=== PATIENT | male | born 1955 | race Caucasian/White ===

== ENCOUNTER 2022-10-31 09:01 | Day surgery (SDC) | payer MEDICARE, OTHER, SELFPAY ==
[2022-10-31] MEDS: LACTATED RINGERS 1000 ML 1,000 ML 100 ML IV (09:20)
[2022-10-31 09:29] VITALS: BMI 24.7
[2022-10-31 09:49] VITALS: BP 143/85; PULSE 79; RESP 18; TEMP 36.4; O2SAT 97
[2022-10-31] MEDS: SODIUM CHLORIDE 0.9 % (FLUSH) 10 ML SYRINGE IVF (10:51)
[2022-10-31] MEDS: BUPIVACAINE 0.5% 30 ML INJECTION (11:33)
[2022-10-31] MEDS: CEFAZOLIN 2 GM INJ IVP (11:34)
--- NOTE | 2022-10-31 11:54 | SUR.OPER ---
Surgeon denied request tos end specimen.
--- NOTE | 2022-10-31 12:37 | W.ANESCHARGE ---
Anesthesia Charges Start Date/Time Anesthesia Start Date: 10/31/22 Anesthesia Start Time: 11:23 Stop Date/Time Anesthesia Stop Date: 10/31/22 Anesthesia Stop Time: 12:38
[2022-10-31 12:38] VITALS: BP 136/83; PULSE 59; RESP 16; TEMP 36.4; O2SAT 96
--- NOTE | 2022-10-31 12:39 | W.ANESCHARGE ---
Anesthesia Charges Start Date/Time Anesthesia Start Date: 10/31/22 Anesthesia Start Time: 11:23 Stop Date/Time Anesthesia Stop Date: 10/31/22 Anesthesia Stop Time: 12:38
[2022-10-31 12:45] VITALS: BP 138/88; PULSE 60; RESP 16; O2SAT 94
--- NOTE | 2022-10-31 12:54 | PM.PROC ---
Procedure Note Date Seen: 10/31/22 Date of procedure: 10/31/22 Will [facility] bill your pro fee for this procedure?: No Pre-op diagnosis: Gangrene 2nd toe left foot Post-op diagnosis: same Procedure: Amputation 2nd toe left foot Procedure Description: Indication for surgery: Patient has a gangrenous toe that is in need of amputation. He has been revascularized and is ready to proceed. Reviewed the procedure, recovery, expectations and potential complications. These include but are not limited to: Poor wound healing, continued infection, potential need for future surgery, more proximal amputation, deep venous thrombosis, pulmonary embolism and possible . All questions answered written consent obtained. Procedure: Patient was brought the operating room placed supine position on operating table. IV sedation administered by anesthesia. The foot was prepped and draped in sterile fashion. Local anesthetic injected into the left foot. Standard time-out protocol was followed. Incision made on the dorsal aspect of proximal phalanx. There is a section of healthy skin extending just proximal to the proximal phalanx head. Incision was taken to bone following the healthy tissue creating a dorsal skin flap. Plantar aspect of the gangrenous toe was an open wound and I excised the necrotic tissue back to healthy bleeding margins on the medial lateral and plantar aspect. I then disarticulated the 2nd toe at the metatarsophalangeal joint and removed in total. Metatarsal head appeared completely healthy. All necrotic tissue was excised from the plantar aspect of the wound. We thoroughly irrigated with normal sterile saline. The dorsal flap excellent capillary fill time and bleeding edges. The dorsal flap was then rotated plantarward and sutured in place along the medial plantar and lateral aspects. There was no tension on the flap. There is no active bleeding prior to closure. No tourniquet utilized during the case. Sterile dressing was applied. Patient was taken to same-day with vital signs stable and vascular status intact to the left foot. He will be discharged per Anesthesia. Given written and verbal postoperative instructions. He will restart his Plavix tomorrow. No tourniquet utilized during the case. Anesthesia: MAC and local Surgeon: Ike Quinones DPM Estimated blood loss (mL): 2 Pathology: none sent Condition: stable Disposition: same day
[2022-10-31 13:00] VITALS: BP 153/91; PULSE 60; RESP 16; O2SAT 97
[2022-10-31] MEDS: OxyCODONE/APAP 5-325 TABLET PO (13:06)
[2022-10-31 13:15] VITALS: BP 135/81; PULSE 60; RESP 16; O2SAT 97
== END 2022-10-31 13:30 | disposition home or self-care (01) ==
PROVIDERS: PCP Family Medicine; Visit Provider Podiatrist
PROC: (CPT 28820; principal; 2022-10-31 10:15)
DX: E11.52 Type 2 diabetes mellitus with diabetic peripheral angiopathy with gangrene (principal); I96 Gangrene, not elsewhere classified
CPT/HCPCS: 28820; 01480; 82962; A9270; J0665; J0690; J2371; J2704; J3010; J7120